=== PATIENT | male | born 1935 | race Two or more races ===

== ENCOUNTER 2017-06-04 16:02 | Emergency (ER) | payer MEDICAID, OTHER ==
[~2017-06-04] VITALS: Ht 167.6 cm; Wt 95.3 kg
[~2017-06-04 16:02] MED LIST: AMLO5CAP40; ATEN50TA; FLUC150T41; GLYB2.5T8; HYDR25TA4; IBUP800T24; METF-370; SIMV-8; VALS160T51
[2017-06-04 16:19] VITALS: BP 153/77
== END 2017-06-04 20:00 | disposition home or self-care (01) ==
LOC: ER 16:02
DX: J40 Bronchitis, not specified as acute or chronic (principal); E11.9 Type 2 diabetes mellitus without complications; I10 Essential (primary) hypertension; E78.5 Hyperlipidemia, unspecified
CPT/HCPCS: 71046

== ENCOUNTER 2019-11-24 22:21 | Inpatient (IN) | payer OTHER ==
[~2019-11-24] VITALS: Ht 172.7 cm; Wt 99.3 kg
[2019-11-24] MEDS ORDERED: ONDANSETRON ODT 4 MG TAB PO ONE (23:30)
[2019-11-24 23:39] LABS: Basophils # (auto) 0.1 10 ^3/uL (0-0.2); Basophils % (auto) 0.7 % (0.0-2.0); Eosinophils # (auto) 0 10 ^3/uL (0-0.8); Eosinophils % (auto) 0.1 % (0.0-7.0); Hematocrit 50.7 % (41.0-53.0); Hemoglobin 16.8 g/dL (13.5-17.5); Lymphocytes # (auto) 1.3 10 ^3/uL (0.4-5.4); Lymphocytes % (auto) 6.9 % (10.0-50.0); Mean Corpuscular Hemoglobin 28.8 pg (28.0-32.0); Mean Corpuscular Hgb Conc. 33.1 g/dL (32.0-36.0); Monocytes # (auto) 1.3 10 ^3/uL (0-1.3); Monocytes % (auto) 6.9 % (0.0-12.0); Neutrophils # (auto) 15.8 10 ^3/uL (1.6-8.6); Neutrophils % (auto) 85.4 % (37.0-80.0); Platelet Count (auto) 213 10^3/uL (140-450); Red Blood Cells 5.83 10^6/uL (4.5-5.90); Red Cell Distribution Width 15.3 % (11.8-14.3); White Blood Cell 18.5 10^3/uL (4.4-10.8)
[2019-11-24 23:58] LABS: Calcium 9.4 mg/dL (8.5-10.1); Potassium 4.1 mmol/L (3.5-5.1)
[2019-11-25 00:02] LABS: Albumin 3.9 g/dL (3.4-5.0)
[2019-11-25 00:05] LABS: Bilirubin, Total 2.2 mg/dL (0.2-1.0); Total Protein 7.7 g/dL (6.4-8.2)
[2019-11-25] MEDS ORDERED: ONDANSETRON HCL 4 MG/2 ML VIAL IM ONE (02:30)
[2019-11-25] MEDS ORDERED: SODIUM CHLORIDE 0.9% 1,000 ML IV ONE (02:30)
[2019-11-25] MEDS ORDERED: MORPHINE SULFATE 4 MG/ML SYR/VIAL IV ONE (02:30)
[2019-11-25] MEDS ORDERED: PIPERACILLIN-TAZOB 2.25GM 50 ML IV ONE (02:30)
[2019-11-25] MEDS ORDERED: PANTOPRAZOLE 40mg/50ML NS AE 50 ML IV ONE (03:00)
[2019-11-25] MEDS ORDERED: PANTOPRAZOLE 40 MG/10 ML VIAL INJ IV ONE (03:00)
[2019-11-25] MEDS ORDERED: ONDANSETRON HCL 4 MG/2 ML VIAL IV PRN ×2 (03:45→16:45)
[2019-11-25] MEDS ORDERED: MORPHINE SULF INJ 2 MG/ML SYRINGE 1ML IV PRN (03:45)
[2019-11-25] MEDS ORDERED: HYDROcodone-ACET 5/325MG TAB PO PRN (03:45)
[2019-11-25] MEDS ORDERED: ACETAMINOPHEN 325 MG TAB PO PRN (03:45)
[2019-11-25] MEDS ORDERED: DOCUSATE SOD 100 MG CAP PO PRN (03:45)
[2019-11-25] MEDS: SODIUM CHLORIDE 0.9% 1,000 ML IV SCH ×2 (04:12→20:22)
[2019-11-25 04:35] LABS: Lactic Acid w/Reflex 2.1 mmol/L (0.4-2.0)
--- NOTE | 2019-11-25 05:20 | NUR ---
Patient Brought to Unit From ER Via Wheelchair. Patient AOx4, awake and alert.
[2019-11-25] MEDS ORDERED: GLIM1TAB3 PO (05:59)
[2019-11-25] MEDS: metroNIDAZOLE 500MG/100ML 100 ML IV SCH ×4 (06:49→23:54)
[2019-11-25 08:21] VITALS: BP 165/102
[2019-11-25 10:00] VITALS: BP 165/92
[2019-11-25] MEDS: HCTZ 25 MG TAB PO SCH (10:45)
[2019-11-25] MEDS: ATENOLOL 50 MG TAB PO SCH (10:46)
[2019-11-25 11:07] LABS: Basophils # (auto) 0.1 10 ^3/uL (0-0.2); Basophils % (auto) 0.5 % (0.0-2.0); Eosinophils # (auto) 0 10 ^3/uL (0-0.8); Eosinophils % (auto) 0.2 % (0.0-7.0); Hematocrit 48.1 % (41.0-53.0); Hemoglobin 15.7 g/dL (13.5-17.5); Lymphocytes # (auto) 1.4 10 ^3/uL (0.4-5.4); Lymphocytes % (auto) 8.7 % (10.0-50.0); Mean Corpuscular Hemoglobin 28.4 pg (28.0-32.0); Mean Corpuscular Hgb Conc. 32.7 g/dL (32.0-36.0); Mean Corpuscular Volume 86.8 fL (80.0-100.0); Monocytes # (auto) 1.2 10 ^3/uL (0-1.3); Monocytes % (auto) 7.9 % (0.0-12.0); Neutrophils # (auto) 13.1 10 ^3/uL (1.6-8.6); Neutrophils % (auto) 82.7 % (37.0-80.0); Platelet Count (auto) 175 10^3/uL (140-450); Red Blood Cells 5.54 10^6/uL (4.5-5.90); White Blood Cell 15.8 10^3/uL (4.4-10.8)
[2019-11-25 11:27] LABS: Calcium 8.7 mg/dL (8.5-10.1); Potassium 3.9 mmol/L (3.5-5.1)
--- NOTE | 2019-11-25 11:28 | NUR ---
SURGICAL CONSULT CALLED DR PARRISH EXCHANGE AND MESSAGE LEFT, REGARDING EMERGENT SURG CONSULT R/T INCARCERATED UMBILICAL HERNIA
[2019-11-25 11:30] LABS: BUN/Creatinine Ratio 22.1
--- NOTE | 2019-11-25 11:54 | NUR ---
CALLED ECHO REGARDING STAT ORDER
[2019-11-25 12:48] VITALS: BP 156/85
[2019-11-25 14:00] LABS: INR 1.07 (0.9-1.15); Partial Thromboplastin Time 30.2 sec (23.64-32.05)
[2019-11-25] MEDS ORDERED: ceFAZolin 1GM/50ML 50 ML IV ONE (14:55)
[2019-11-25] MEDS: PHENYLEPHRINE IV 250 ML IV SCH ×2 (15:15→23:35)
[2019-11-25] MEDS ORDERED: MORPHINE SULF(PF) 0.5MG/ML 10ML VIAL ONE (15:32)
[2019-11-25] MEDS ORDERED: MIDAZOLAM HCL 1MG/1ML-2 ML VIAL ONE ×2 (15:32→15:38)
[2019-11-25] MEDS ORDERED: fentaNYL CITRATE 100 MCG/2 ML VL ONE (15:32)
[2019-11-25] MEDS ORDERED: LABETALOL HCL 5 MG/ML 4ML SYRINGE IV PRN (16:45)
[2019-11-25] MEDS ORDERED: MORPHINE SULFATE 4 MG/ML SYR/VIAL IV PRN (16:45)
[2019-11-25] MEDS ORDERED: ePHEDrine SULFATE 50 MG/ML AMP IV PRN (16:45)
[2019-11-26 04:14] LABS: Basophils # (auto) 0.1 10 ^3/uL (0-0.2); Basophils % (auto) 0.5 % (0.0-2.0); Eosinophils # (auto) 0.1 10 ^3/uL (0-0.8); Eosinophils % (auto) 0.5 % (0.0-7.0); Hematocrit 44.5 % (41.0-53.0); Hemoglobin 14.5 g/dL (13.5-17.5); Lymphocytes # (auto) 1.1 10 ^3/uL (0.4-5.4); Lymphocytes % (auto) 8.6 % (10.0-50.0); Mean Corpuscular Hemoglobin 28.7 pg (28.0-32.0); Mean Corpuscular Hgb Conc. 32.7 g/dL (32.0-36.0); Mean Corpuscular Volume 87.9 fL (80.0-100.0); Monocytes # (auto) 1.2 10 ^3/uL (0-1.3); Neutrophils # (auto) 10.6 10 ^3/uL (1.6-8.6); Neutrophils % (auto) 81.4 % (37.0-80.0); Platelet Count (auto) 158 10^3/uL (140-450); Red Blood Cells 5.07 10^6/uL (4.5-5.90); Red Cell Distribution Width 14.9 % (11.8-14.3)
[2019-11-26 04:32] LABS: Potassium 3.3 mmol/L (3.5-5.1)
[2019-11-26 04:39] LABS: BUN/Creatinine Ratio 23.1; Calcium 8.2 mg/dL (8.5-10.1)
[2019-11-26] MEDS: metroNIDAZOLE 500MG/100ML 100 ML IV SCH ×3 (06:03→21:49)
[2019-11-26 08:00] VITALS: BP 115/97
--- NOTE | 2019-11-26 08:30 | NUR ---
Received report. Patient on Med-surg/Tele floor. Alert oriented and oriented x4. No c/o pain, no s/s of distress noted/stated. Bed at lowest locked position and call light within reach. Will continue to monitor.
[2019-11-26 09:05] VITALS: BP 159/81
[2019-11-26 12:30] VITALS: BP 171/84
[2019-11-26] MEDS: HCTZ 25 MG TAB PO SCH (12:35)
[2019-11-26] MEDS: ATENOLOL 50 MG TAB PO SCH (12:36)
--- NOTE | 2019-11-26 13:54 | NUR ---
Updated Family member, Lynnette on POC, after password provided.
[2019-11-26] MEDS ORDERED: hydrALAZINE HCL 20 MG/ML VL IV PRN (15:15)
[2019-11-26] MEDS ORDERED: POTASSIUM CHL 20MEQ/100ML 100 ML IV ONE (15:15)
[2019-11-26] MEDS ORDERED: amLODIPine BESYLATE 5 MG TAB PO ONE (15:15)
[2019-11-26] MEDS ORDERED: DEXTROSE (50%) 50ML SYRG IV PRN (15:15)
[2019-11-26] MEDS ORDERED: D5W/SOD CHL 0.45%/KCL 20MEQ 1,000 ML IV SCH (15:15)
--- NOTE | 2019-11-26 16:32 | NUR ---
Paged Dr. Cano for diet and NG Tube follow up, per MD Anaid Farnsworth. Awaiting call back.
[2019-11-26 17:13] VITALS: BP 186/97
--- NOTE | 2019-11-26 18:00 | NUR ---
IV insertion IV access obtained, via clean sterile technique by inserting 22 gauge catheter at RIGHT HAND after 3 attempts. IV secured properly. No trauma to site. Patient tolerated well. will continue to monitor.
--- NOTE | 2019-11-26 18:05 | NUR ---
IV removal IV DC'd to left FA with clean sterile technique, catheter fully intact. Pressure dressing applied to site. Patient tolerated well.
[2019-11-26] MEDS: InsuLIN REG 1unit/0.01ml Soln (100units/ml) SC SCH (19:30)
--- NOTE | 2019-11-26 19:40 | NUR ---
closing shift Patient is comfortably resting in bed, no s/s of distress/sob noted/stated. Bed at lowest lo0ked position and call light within reach. Endorsed care to NOC RN.
--- NOTE | 2019-11-26 20:30 | NUR ---
PATIENT REFUSED IVF WITH POTASSIUM. HE CLAIMED THAT IT'S IRRITATING HIS VEIN. OFFERED COLD COMPRESS, BUT PATIENT STILL REFUSED THE IVF. CONSEQUENCES, BUT STILL REFUSED.
[2019-11-26] MEDS: ACCU-CHEK COMFORT CURVE STRIP VI SCH (21:50)
[2019-11-26] MEDS: ATORVASTATIN 20 MG TAB PO SCH ×2 (21:51→22:00)
[2019-11-26 22:00] VITALS: BP 144/52
--- NOTE | 2019-11-26 22:00 | NUR ---
OFFERED TO START A NEW IV ACCESS, BUT PATIENT CLAIMED THAT HE HAS BEEN STUCK SEVERAL TIMES ALREADY BY THE DAY SHIFT RN AND HE DOES NOT WANT TO GO THROUGH THE SAME EXPERIENCE , AGAIN. NOTED.
[2019-11-27] MEDS: ACCU-CHEK COMFORT CURVE STRIP VI SCH ×4 (00:25→18:19)
[2019-11-27] MEDS: metroNIDAZOLE 500MG/100ML 100 ML IV SCH ×4 (00:26→17:40)
[2019-11-27 05:05] VITALS: BP 152/90
[2019-11-27 05:51] LABS: Basophils # (auto) 0 10 ^3/uL (0-0.2); Basophils % (auto) 0.4 % (0.0-2.0); Eosinophils # (auto) 0 10 ^3/uL (0-0.8); Eosinophils % (auto) 0.3 % (0.0-7.0); Hematocrit 45.1 % (41.0-53.0); Hemoglobin 15.1 g/dL (13.5-17.5); Lymphocytes # (auto) 0.7 10 ^3/uL (0.4-5.4); Lymphocytes % (auto) 7.8 % (10.0-50.0); Mean Corpuscular Hemoglobin 29.1 pg (28.0-32.0); Mean Corpuscular Hgb Conc. 33.5 g/dL (32.0-36.0); Mean Corpuscular Volume 86.9 fL (80.0-100.0); Monocytes # (auto) 0.9 10 ^3/uL (0-1.3); Neutrophils # (auto) 7.8 10 ^3/uL (1.6-8.6); Neutrophils % (auto) 82.5 % (37.0-80.0); Nucleated Red Blood Cells % 0.1 %; Platelet Count (auto) 138 10^3/uL (140-450); Red Blood Cells 5.18 10^6/uL (4.5-5.90); Red Cell Distribution Width 14.6 % (11.8-14.3); White Blood Cell 9.5 10^3/uL (4.4-10.8)
[2019-11-27] MEDS: InsuLIN REG 1unit/0.01ml Soln (100units/ml) SC SCH ×4 (05:55→17:50)
[2019-11-27 06:05] LABS: Potassium 3.3 mmol/L (3.5-5.1)
[2019-11-27 06:13] LABS: Calcium 8.1 mg/dL (8.5-10.1)
--- NOTE | 2019-11-27 07:30 | NUR ---
7Opening Shift Note Assumed care of patient, alert and oriented x4. Respirations are even and unlabored. No S/S of distress/SOB or pain. S/p hernia repair; abdominal binder is in place. Bed is low, locked with 2x side rails up. Call light is within reach. Instructed on POC and to call for assist PRN, will continue to monitor for changes Q1hr and PRN.
--- NOTE | 2019-11-27 08:50 | NUR ---
Patient took NG tube out No trauma noted. Paging Dr. Cano to make aware.
[2019-11-27 09:00] VITALS: BP 160/87
--- NOTE | 2019-11-27 09:02 | NUR ---
Dr. Cano aware of NG removal New orders received to advance diet to full liquid and per MD if patient reports having bowel movements patient does not need to have NG tube placed again. Will carry out orders.
[2019-11-27] MEDS: HCTZ 25 MG TAB PO SCH (10:00)
[2019-11-27] MEDS: amLODIPine BESYLATE 5 MG TAB PO SCH (10:01)
[2019-11-27] MEDS: ATENOLOL 50 MG TAB PO SCH (10:01)
[2019-11-27] MEDS: PANTOPRAZOLE 40 MG/10 ML VIAL INJ IV SCH (10:02)
[2019-11-27 13:00] VITALS: BP 140/81
[2019-11-27 17:00] VITALS: BP 123/76
--- NOTE | 2019-11-27 19:42 | NUR ---
Opening Shift Note Received report and assumed care of patient. Patient is awake and alert. No signs or symptoms of distress noted. Instructed patient on plan of care and to call for assistance as needed. Will continue to monitor.
[2019-11-27] MEDS: ATORVASTATIN 20 MG TAB PO SCH (21:44)
[2019-11-27 22:00] VITALS: BP 133/80
[2019-11-28] MEDS: metroNIDAZOLE 500MG/100ML 100 ML IV SCH ×4 (00:39→18:08)
[2019-11-28] MEDS: ACCU-CHEK COMFORT CURVE STRIP VI SCH ×4 (00:39→18:08)
[2019-11-28] MEDS: InsuLIN REG 1unit/0.01ml Soln (100units/ml) SC SCH ×4 (00:47→18:09)
[2019-11-28] MEDS: POTASSIUM CHL 20MEQ/100ML 100 ML IV SCH ×2 (01:47→03:21)
[2019-11-28 05:00] VITALS: BP 148/79
[2019-11-28 05:19] LABS: Basophils # (auto) 0 10 ^3/uL (0-0.2); Basophils % (auto) 0.6 % (0.0-2.0); Eosinophils # (auto) 0.1 10 ^3/uL (0-0.8); Eosinophils % (auto) 1.9 % (0.0-7.0); Hematocrit 43.2 % (41.0-53.0); Hemoglobin 14.4 g/dL (13.5-17.5); Lymphocytes # (auto) 0.9 10 ^3/uL (0.4-5.4); Lymphocytes % (auto) 11.6 % (10.0-50.0); Mean Corpuscular Hgb Conc. 33.4 g/dL (32.0-36.0); Mean Corpuscular Volume 86.8 fL (80.0-100.0); Monocytes # (auto) 0.8 10 ^3/uL (0-1.3); Monocytes % (auto) 10.6 % (0.0-12.0); Neutrophils # (auto) 5.8 10 ^3/uL (1.6-8.6); Neutrophils % (auto) 75.3 % (37.0-80.0); Platelet Count (auto) 134 10^3/uL (140-450); Red Blood Cells 4.97 10^6/uL (4.5-5.90); Red Cell Distribution Width 14.5 % (11.8-14.3); White Blood Cell 7.7 10^3/uL (4.4-10.8)
[2019-11-28 05:39] LABS: BUN/Creatinine Ratio 25.9; Calcium 7.9 mg/dL (8.5-10.1); Potassium 3.7 mmol/L (3.5-5.1)
--- NOTE | 2019-11-28 07:10 | NUR ---
Opening Shift Note Assumed care of patient, alert and oriented x4. Respirations are even and unlabored. No S/S of distress/SOB or pain. S/p hernia repair; abdominal binder is in place and dressing is C/D/I. Bed is low, locked with 2x side rails up. Call light is within reach. Instructed on POC and to call for assist PRN, will continue to monitor for changes Q1hr and PRN.
[2019-11-28 09:00] VITALS: BP 145/74
[2019-11-28] MEDS: PANTOPRAZOLE 40 MG/10 ML VIAL INJ IV SCH (09:27)
[2019-11-28] MEDS: HCTZ 25 MG TAB PO SCH (09:28)
[2019-11-28] MEDS: amLODIPine BESYLATE 5 MG TAB PO SCH (09:28)
[2019-11-28] MEDS: ATENOLOL 50 MG TAB PO SCH (09:29)
--- NOTE | 2019-11-28 11:29 | NUR ---
Advanced diet Patient is tolerating full liquid diet well. Received orders from Dr. Cano to advance diet. Will carry out orders.
--- NOTE | 2019-11-28 12:18 | NUR ---
[facility] for Anaid Farnsworth Patient is cleared from surgical standpoint. Per Dr. Cano, patient must stay off work until patient's 2 week follow up appointment.
[2019-11-28 13:07] VITALS: BP 128/77
--- NOTE | 2019-11-28 14:29 | NUR ---
Est energy needs 1643-2194 kcal (18-20 kcal/kg BW 99.3kg) est protein needs 70-91g (1-1.3g/kg IBW 70kg) Will reassess prn. Addendum: 11/28/19 at [address] Amended: Links added.
[2019-11-28 17:00] VITALS: BP 142/83
[2019-11-28] MEDS ORDERED: METR500T PO (17:26)
[2019-11-28 18:27] VITALS: BP 142/83
--- NOTE | 2019-11-28 18:51 | NUR ---
Discharge instructions given as ordered. Encourage to follow up with PMD as instructed. All questions and concerns addressed. Patient verbalized understanding. IV removed with catheter intact, pressure dressing applied. Telemetry unit returned to ICU. Patient taken to vehicle via wheelchair with all personal belongings, accompanied by staff. No distress noted at time of departure.
== END 2019-11-28 18:51 | disposition home or self-care (01) | DRG 354 ==
LOC: ER 22:21 → EDBD 22:21 → OVERFLOW 22:22 → WEST WING 11-25 05:20 → PACU ICU 11-25 17:54 → TELE-WESTW 11-26 08:38
PROVIDERS: ADMIT Hospitalist; ATTEND Internal Medicine
PROC: 0WQF0ZZ Repair Abdominal Wall, Open Approach (ICD-10-PCS; principal; 2019-11-25 15:15)
DX: K42.0 Umbilical hernia with obstruction, without gangrene (principal); K56.609 Unspecified intestinal obstruction, unspecified as to partial versus complete obstruction; N17.9 Acute kidney failure, unspecified; E87.0 Hyperosmolality and hypernatremia; R16.0 Hepatomegaly, not elsewhere classified; E87.6 Hypokalemia; I35.0 Nonrheumatic aortic (valve) stenosis; N18.3 Chronic kidney disease, stage 3 (moderate); E11.22 Type 2 diabetes mellitus with diabetic chronic kidney disease; E78.5 Hyperlipidemia, unspecified; I12.9 Hypertensive chronic kidney disease with stage 1 through stage 4 chronic kidney disease, or unspecified chronic kidney disease; D72.829 Elevated white blood cell count, unspecified; N20.0 Calculus of kidney; N28.1 Cyst of kidney, acquired; Z83.3 Family history of diabetes mellitus
CPT/HCPCS: 36415; 71045; 74176; 80048; 80053; 80061; 82962; 83036; 83605; 85025; 85610; 85730; 86850; 86900; 86901; 87040; 93005; 93306; 96361; 96365; 96375; C9113; G0378; J0690; J1815; J2250; J2405; J2543; J3480; J3490; Q0162